=== PATIENT | female | born 1975 | race Caucasian/White ===

== ENCOUNTER → 2016-05-09 | Outpatient (CLI) | payer OTHER ==
--- NOTE | 2016-05-10 07:30 | XR ---
EXAMINATION TYPE: XR lumbosacral spine min 4V DATE OF EXAM: 05/09/2016 2:14 PM CLINICAL HISTORY: Chronic low back pain. TECHNIQUE: Frontal, lateral, and oblique images of the lumbar spine are obtained. COMPARISON: None FINDINGS: There are 5 lumbar type vertebral bodies identified. The lumbar spine shows satisfactory alignment without evidence of acute fracture or dislocation. There is mild disc space narrowing L5-S1 level otherwise vertebral body heights and disk space heights are within normal limits. No signific ant spurring is seen. The oblique images appear within normal limits. The overlying soft tissue appe ars unremarkable. IMPRESSION: Mild disc space narrowing L5-S1 level.
== END | disposition home or self-care (01) ==
LOC: RADXRYALE 13:59
PROVIDERS: ATTEND Physician Assistant Medical
DX: M48.06 Spinal stenosis, lumbar region (principal)
CPT/HCPCS: 72110

== ENCOUNTER → 2016-08-30 | Outpatient (CLI) | payer OTHER ==
--- NOTE | 2016-08-31 11:08 | MR ---
EXAMINATION TYPE: MR lumbar spine wo con DATE OF EXAM: 08/30/2016 COMPARISON: Plain film 05/09/2016 HISTORY: LBP, BLE radic x 6 years TECHNIQUE: Multiplanar, multisequence images of the lumbar spine were acquired. L1-L2: Normal disc appearance without desiccation. No herniation, protrusion or disc bulging. No ca nal stenosis is present. Foramina are patent bilaterally. L2-L3: Mild posterior broad-based disc bulge causes only slight anterior mass effect on the thecal sa c. No significant central stenosis or foraminal encroachment. L3-L4: There is mild facet arthropathy, no significant central canal stenosis. No sizable disc hernia tion or foraminal encroachment. L4-L5: Facet arthropathy is present with hypertrophy of the ligamentum flavum. No significant central stenosis or foraminal encroachment. L5-S1: Small central posterior disc herniation causes contact with anterior S1 nerve roots and possib ly anterior thecal sac. No significant central canal stenosis or foraminal encroachment. Facet arthro yolette changes present with hypertrophy of ligamentum flavum. Lumbar segments are intact. No paraspinal masses are identified. Conus medullaris has a normal appe arance. There is a mild spinal curvature. Loss of disc height and signal present L5-S1. IMPRESSION: Small posterior disc herniation L5-S1, correlate for S1 radiculopathy. Mild spinal curvature.
== END | disposition home or self-care (01) ==
LOC: RADMRIMAIN 18:44
PROVIDERS: ATTEND Family Medicine
DX: M51.27 Other intervertebral disc displacement, lumbosacral region (principal); M43.8X6 Other specified deforming dorsopathies, lumbar region
CPT/HCPCS: 72148

== ENCOUNTER → 2019-09-10 | Outpatient (CLI) | payer OTHER ==
--- NOTE | 2019-09-10 11:33 | XR ---
EXAMINATION TYPE: XR cervical spine comp DATE OF EXAM: 09/10/2019 COMPARISON: None HISTORY: Cervicalgia TECHNIQUE: Five-view cervical spine FINDINGS: Odontoid is nondiagnostic. Prevertebral space is normal. Vertebral body alignment is normal . Posterior spinal lamellar line is intact. Vertebral body heights are preserved. Disc heights are pr eserved. Foramen are patent. IMPRESSION: 1. Visualized five-view cervical spine appears normal.
== END | disposition home or self-care (01) ==
LOC: RADXRYALE 10:57
PROVIDERS: ATTEND Physician Assistant Medical
DX: M54.2 Cervicalgia (principal)
CPT/HCPCS: 72050